=== PATIENT | female | born 1970 | race African-American/Black ===

== ENCOUNTER 2016-12-08 00:17 | Emergency (ER) | payer MEDICAID ==
[~2016-12-08] VITALS: Ht 167.6 cm; Wt 64.0 kg
[2016-12-08] MEDS ORDERED: KETOROLAC 60MG/2ML VIAL IM ONE (07:00)
[2016-12-08 10:15] VITALS: BP 124/76
== END 2016-12-08 10:35 | disposition home or self-care (01) ==
LOC: ER 00:22
DX: M79.605 Pain in left leg (principal); Z98.890 Other specified postprocedural states; V03.19XA Pedestrian with other conveyance injured in collision with car, pick-up truck or van in traffic accident, initial encounter; Y93.89 Activity, other specified; Y92.488 Other paved roadways as the place of occurrence of the external cause
CPT/HCPCS: 73590; 96372; 99284; J1885